=== PATIENT | male | born 1945 | race Hispanic/Latino ===

== ENCOUNTER 2020-07-11 05:16 | Inpatient (IN) | payer MEDICARE ==
[2020-07-06 08:56] LABS: BASOPHILS % 0.6 % (0.0-1.0); EOSINOPHILS # (AUTO) 0.1 (0.0-0.4); EOSINOPHILS % 1.6 % (0.0-6.0); HEMATOCRIT 39.3 % (38.2-49.6); HEMOGLOBIN 13.1 g/dL (14.0-18.0); LYMPHOCYTES # (AUTO) 1.5 (1.0-3.2); MEAN CORPUSCULAR HEMOGLOBIN 29.4 pg (28-32); MEAN CORPUSCULAR HGB CONC 33.3 g/dL (31-35); MEAN CORPUSCULAR VOLUME 88.1 fL (81-99); MONOCYTES # (AUTO) 0.7 (0.2-0.8); MONOCYTES % 9.7 % (4.4-11.3); NEUTROPHILS # (AUTO) 4.3 (2.1-6.9); NEUTROPHILS % 64.6 % (38.7-80.0); PLATELET COUNT 250 x10e3/uL (140-360); RED BLOOD COUNT 4.46 x10e6/uL (4.3-5.7); RED CELL DISTRIBUTION WIDTH 13.2 % (11.7-14.4)
[2020-07-06 09:23] LABS: INR 0.93; PARTIAL THROMBOPLASTIN TIME 26.3 seconds (23.8-35.5); PROTHROMBIN TIME 12.9 seconds (11.9-14.5)
[2020-07-06 09:32] LABS: ANION GAP 14.9 mmol/L (8-16); CALCIUM 8.8 mg/dL (8.4-10.2); CREATININE, SERUM 1.55 mg/dL (0.72-1.25); POTASSIUM 3.9 mmol/L (3.5-5.1)
[~2020-07-11] VITALS: Ht 165.1 cm; Wt 86.2 kg
[~2020-07-11 05:16] MED LIST: ASPIRIN81 MG PO; BASAGLAR K100 UNIT/1 SQ; DIOVAN160 MG PO; FINASTERIDE5 MG PO; FISH OIL 1,2001 EACH PO; FLOMAX0.4 MG PO; HUMALOG100 UNIT/3 SC; METOPROLOL SUCC50 MG PO; MULTIVITAMINS1 EAC7 PO; NOVOLIN N100 UNIT/1 SQ; RESVERATROL PL1 EACH PO; TOUJEO SOL300 UNIT/1 SC; TRADJENTA5 MG PO; VITAMIN B-121000 MCG PO; VITAMIN D310 MCG PO
[2020-07-11] MEDS ORDERED: GENTAMICIN 80MG/NS 100 ML 200 ML IV ONE (06:09)
[2020-07-11] MEDS ORDERED: CEFTRIAXONE SOD 1 GM/NS 50 ML 50 ML IV ONE (06:09)
[2020-07-11] MEDS ORDERED: SODIUM CHLORIDE 0.9% 1000ML 1,000 ML ONE (06:27)
[2020-07-11] MEDS ORDERED: INSULIN REGULAR, HUMAN 100 UNIT/1 ML 3ML VIAL ONE (06:30)
[2020-07-11] MEDS ORDERED: IOPAMIDOL 300MG/ML 50ML INFUS..BTL IV ONE (06:47)
[2020-07-11] MEDS ORDERED: B&O 60MG R/S 60 MG SUPP PR ONE (06:48)
[2020-07-11] MEDS ORDERED: GENTAMICIN 80MG/NS 100 ML 100 ML IV ONE (07:44)
[2020-07-11] MEDS ORDERED: PHENAZOPYRIDINE HCL 100 MG TAB PO PRN (08:45)
[2020-07-11] MEDS ORDERED: ONDANSETRON HCL INJ 2MG/ML 2ML 2 MG/ML VIAL IV PRN (08:45)
[2020-07-11] MEDS ORDERED: DIPHENHYDRAMINE HCL 25 MG CAP PO PRN (08:45)
[2020-07-11] MEDS ORDERED: B&O 60MG R/S 60 MG SUPP PR PRN (08:45)
[2020-07-11] MEDS ORDERED: MORPHINE SULFATE INJ 2 MG/ML SYR ONE (09:25)
[2020-07-11 09:49] VITALS: BP 147/73
[2020-07-11 10:53] LABS: BASOPHILS % 0.4 % (0.0-1.0); EOSINOPHILS % 0.4 % (0.0-6.0); HEMATOCRIT 37.9 % (38.2-49.6); LYMPHOCYTES # (AUTO) 0.7 (1.0-3.2); LYMPHOCYTES % 7.8 % (18.0-39.1); MEAN CORPUSCULAR HEMOGLOBIN 29.7 pg (28-32); MEAN CORPUSCULAR HGB CONC 34.3 g/dL (31-35); MEAN CORPUSCULAR VOLUME 86.7 fL (81-99); MONOCYTES # (AUTO) 0.5 (0.2-0.8); MONOCYTES % 5.8 % (4.4-11.3); NEUTROPHILS # (AUTO) 7.2 (2.1-6.9); NEUTROPHILS % 84.2 % (38.7-80.0); PLATELET COUNT 241 x10e3/uL (140-360); RED BLOOD COUNT 4.37 x10e6/uL (4.3-5.7)
[2020-07-11 11:14] LABS: ANION GAP 14.2 mmol/L (8-16); CALCIUM 8.6 mg/dL (8.4-10.2); CREATININE, SERUM 1.35 mg/dL (0.72-1.25); POTASSIUM 4.2 mmol/L (3.5-5.1)
[2020-07-11] MEDS: SODIUM CHLORIDE 0.9% 1000ML 1,000 ML IV SCH ×2 (11:20→16:34)
[2020-07-11] MEDS: DOCUSATE SODIUM 100 MG CAP PO SCH ×2 (11:20→16:34)
[2020-07-11 12:00] VITALS: BP 147/73
[2020-07-11] MEDS ORDERED: PROPOFOL IV EMULSION 10 MG/ML 20 ML VIAL ONE (12:55)
[2020-07-11] MEDS ORDERED: LIDOCAINE HCL 2% JELLY 5 ML TUBE ONE (12:55)
[2020-07-11] MEDS ORDERED: FENTANYL CITRATE/PF 100MCG/2 ML INJ ONE (12:55)
[2020-07-11] MEDS ORDERED: GENTAMICIN SULFATE 40 MG/ML 2 ML VIAL ONE (12:55)
[2020-07-11] MEDS ORDERED: SEVOFLURANE INHAL SOLN 250 ML PEN BTL ONE (12:55)
[2020-07-11] MEDS ORDERED: MIDAZOLAM HCL 2 MG/2 ML VIAL ONE (12:55)
[2020-07-11] MEDS ORDERED: LIDOCAINE HCL 2% LOCAL INJ 5 ML SDV VIAL INJ ONE (12:55)
[2020-07-11] MEDS ORDERED: ONDANSETRON HCL INJ 2MG/ML 2ML 2 MG/ML VIAL ONE (12:55)
[2020-07-11 16:00] VITALS: BP 143/73
[2020-07-11] MEDS: ACETAMINOPHEN/CODEINE 300MG - 30MG TAB PO PRN (16:35)
[2020-07-11] MEDS ORDERED: DEXTROSE 50% SYRINGE 50 ML IV PRN (16:45)
[2020-07-11] MEDS ORDERED: POLYETHYLENE GLYCOL 3350 17 GM PACK PO PRN (19:15)
[2020-07-11] MEDS ORDERED: TEMAZEPAM 7.5 MG CAP PO PRN (19:15)
[2020-07-11] MEDS ORDERED: HYDRALAZINE HCL 20 MG/ML VIAL IV PRN (19:15)
[2020-07-11 20:00] VITALS: BP 156/73
[2020-07-11] MEDS ORDERED: INSULIN GLARGINE 100 UNITS/ML VIAL SQ SCH (21:00)
[2020-07-11] MEDS: INSULIN REGULAR, HUMAN 100 UNIT/1 ML 3ML VIAL SQ SCH (21:37)
[2020-07-11] MEDS: INSULIN GLARGINE 100 UNITS/ML VIAL SQ SCH (21:43)
[2020-07-11 21:45] VITALS: BP 156/73
[2020-07-12] VITALS (8 sets, daily range): BP systolic 140–164; BP diastolic 69–79
[2020-07-12] MEDS: SODIUM CHLORIDE 0.9% 1000ML 1,000 ML IV SCH ×2 (05:08→15:00)
[2020-07-12 05:13] LABS: BASOPHILS % 0.5 % (0.0-1.0); EOSINOPHILS # (AUTO) 0.1 (0.0-0.4); EOSINOPHILS % 1.1 % (0.0-6.0); HEMATOCRIT 36.2 % (38.2-49.6); HEMOGLOBIN 12.4 g/dL (14.0-18.0); LYMPHOCYTES # (AUTO) 0.9 (1.0-3.2); LYMPHOCYTES % 10.5 % (18.0-39.1); MEAN CORPUSCULAR HEMOGLOBIN 29.9 pg (28-32); MEAN CORPUSCULAR HGB CONC 34.3 g/dL (31-35); MEAN CORPUSCULAR VOLUME 87.2 fL (81-99); MONOCYTES % 10.9 % (4.4-11.3); NEUTROPHILS # (AUTO) 6.7 (2.1-6.9); NEUTROPHILS % 76.3 % (38.7-80.0); PLATELET COUNT 240 x10e3/uL (140-360); RED BLOOD COUNT 4.15 x10e6/uL (4.3-5.7); RED CELL DISTRIBUTION WIDTH 13.4 % (11.7-14.4)
[2020-07-12 05:42] LABS: CALCIUM 8.4 mg/dL (8.4-10.2); CREATININE, SERUM 1.46 mg/dL (0.72-1.25)
[2020-07-12 06:02] LABS: CHOL/HDL RATIO 7.3 (3.9-4.7); MAGNESIUM 1.6 MG/DL (1.3-2.1); PHOSPHORUS 3.3 MG/DL (2.3-4.7)
[2020-07-12 06:23] LABS: THYROID STIMULATING HORMONE 1.982 uIU/mL (0.350-4.940)
[2020-07-12] MEDS: CEFTRIAXONE SOD 1 GM/NS 50 ML 50 ML IV SCH (06:42)
[2020-07-12] MEDS: DOCUSATE SODIUM 100 MG CAP PO SCH ×2 (08:22→15:00)
[2020-07-12] MEDS: FAMOTIDINE 20 MG TAB PO SCH ×2 (08:26→17:06)
[2020-07-12] MEDS: CYANOCOBALAMIN 1,000 MCG TAB PO SCH (08:26)
[2020-07-12] MEDS: TAMSULOSIN HCL 0.4 MG CAP PO SCH (08:26)
[2020-07-12] MEDS: MULTIVITAMINS/MINERALS TAB PO SCH (08:26)
[2020-07-12] MEDS: FINASTERIDE 5 MG TAB PO SCH (08:26)
[2020-07-12] MEDS: CHOLECALCIFEROL 400 UNIT TAB PO SCH (08:26)
[2020-07-12] MEDS: OMEGA 3 POLYUNSAT FATTY ACIDS 1000 MG SOFTGEL PO SCH (08:26)
[2020-07-12] MEDS: METOPROLOL SUCCINATE 50 MG TAB XL PO SCH ×2 (08:32→17:07)
[2020-07-12] MEDS: INSULIN REGULAR, HUMAN 100 UNIT/1 ML 3ML VIAL SQ SCH ×4 (08:32→21:49)
[2020-07-12] MEDS: ACETAMINOPHEN/CODEINE 300MG - 30MG TAB PO PRN (18:46)
[2020-07-12] MEDS ORDERED: ATORVASTATIN 40 MG TAB PO SCH (21:00)
[2020-07-12] MEDS: INSULIN GLARGINE 100 UNITS/ML VIAL SQ SCH (21:49)
[2020-07-13] VITALS: BP 152/78
[2020-07-13] MEDS: SODIUM CHLORIDE 0.9% 1000ML 1,000 ML IV SCH ×2 (00:43→11:08)
[2020-07-13 04:00] VITALS: BP 165/76
[2020-07-13 05:09] LABS: BASOPHILS % 0.5 % (0.0-1.0); EOSINOPHILS # (AUTO) 0.2 (0.0-0.4); EOSINOPHILS % 2.3 % (0.0-6.0); HEMATOCRIT 35.6 % (38.2-49.6); HEMOGLOBIN 11.9 g/dL (14.0-18.0); LYMPHOCYTES # (AUTO) 1.1 (1.0-3.2); MEAN CORPUSCULAR HEMOGLOBIN 29.5 pg (28-32); MEAN CORPUSCULAR HGB CONC 33.4 g/dL (31-35); MEAN CORPUSCULAR VOLUME 88.1 fL (81-99); MONOCYTES % 11.9 % (4.4-11.3); NEUTROPHILS # (AUTO) 6.3 (2.1-6.9); NEUTROPHILS % 71.4 % (38.7-80.0); PLATELET COUNT 225 x10e3/uL (140-360); RED BLOOD COUNT 4.04 x10e6/uL (4.3-5.7); RED CELL DISTRIBUTION WIDTH 13.3 % (11.7-14.4)
[2020-07-13 05:23] LABS: ANION GAP 12.1 mmol/L (8-16); CALCIUM 8.3 mg/dL (8.4-10.2); CREATININE, SERUM 1.36 mg/dL (0.72-1.25); POTASSIUM 4.1 mmol/L (3.5-5.1)
[2020-07-13] MEDS ORDERED: Atorvastatin PO (05:41)
[2020-07-13] MEDS: CEFTRIAXONE SOD 1 GM/NS 50 ML 50 ML IV SCH (06:32)
[2020-07-13 08:00] VITALS: BP 158/71
[2020-07-13] MEDS: INSULIN REGULAR, HUMAN 100 UNIT/1 ML 3ML VIAL SQ SCH ×3 (08:30→17:00)
[2020-07-13 08:39] VITALS: BP 158/71
[2020-07-13] MEDS: FAMOTIDINE 20 MG TAB PO SCH ×2 (08:54→16:40)
[2020-07-13] MEDS: TAMSULOSIN HCL 0.4 MG CAP PO SCH (08:55)
[2020-07-13] MEDS: MULTIVITAMINS/MINERALS TAB PO SCH (08:55)
[2020-07-13] MEDS: CHOLECALCIFEROL 400 UNIT TAB PO SCH (08:56)
[2020-07-13] MEDS: FINASTERIDE 5 MG TAB PO SCH (08:56)
[2020-07-13] MEDS: OMEGA 3 POLYUNSAT FATTY ACIDS 1000 MG SOFTGEL PO SCH (08:56)
[2020-07-13] MEDS: CYANOCOBALAMIN 1,000 MCG TAB PO SCH (08:56)
[2020-07-13] MEDS: METOPROLOL SUCCINATE 50 MG TAB XL PO SCH ×2 (08:57→16:40)
[2020-07-13] MEDS: ACETAMINOPHEN/CODEINE 300MG - 30MG TAB PO PRN (08:57)
[2020-07-13] MEDS: DOCUSATE SODIUM 100 MG CAP PO SCH ×2 (08:58→16:43)
[2020-07-13 11:50] VITALS: BP 159/69
[2020-07-13] MEDS ORDERED: ONDANSETRON HCL 4 MG ORAL DISINTEGRATING TAB PO PRN (12:45)
[2020-07-13 16:00] VITALS: BP 161/76
[2020-07-13] MEDS ORDERED: TYLENOL # 31 EA (17:23)
[2020-07-13] MEDS ORDERED: CEFUROXIME500 MG (17:24)
== END 2020-07-13 17:36 | disposition home or self-care (01) | DRG 713 ==
LOC: OR 05:16 → PACU V 08:38 → MED/SURG 09:50
PROVIDERS: ADMIT Internal Medicine; ATTEND Internal Medicine
PROC: BT141ZZ Fluoroscopy of Kidneys, Ureters and Bladder using Low Osmolar Contrast (ICD-10-PCS; 2020-07-11)
PROC: 0T788ZZ Dilation of Bilateral Ureters, Via Natural or Artificial Opening Endoscopic (ICD-10-PCS; 2020-07-11)
PROC: 0VT07ZZ Resection of Prostate, Via Natural or Artificial Opening (ICD-10-PCS; principal; 2020-07-11 07:00)
PROC: 0T7D8ZZ Dilation of Urethra, Via Natural or Artificial Opening Endoscopic (ICD-10-PCS; 2020-07-11 07:00)
DX: N40.1 Benign prostatic hyperplasia with lower urinary tract symptoms (principal); N39.0 Urinary tract infection, site not specified; N13.8 Other obstructive and reflux uropathy; N17.9 Acute kidney failure, unspecified; N35.816 Other urethral stricture, male, overlapping sites; E78.00 Pure hypercholesterolemia, unspecified; E78.1 Pure hyperglyceridemia; I12.9 Hypertensive chronic kidney disease with stage 1 through stage 4 chronic kidney disease, or unspecified chronic kidney disease; E11.22 Type 2 diabetes mellitus with diabetic chronic kidney disease; N18.30 Chronic kidney disease, stage 3 unspecified; Z20.828 Contact with and (suspected) exposure to other viral communicable diseases; I25.2 Old myocardial infarction; Z74.09 Other reduced mobility; E66.9 Obesity, unspecified; Z68.31 Body mass index [BMI] 31.0-31.9, adult; Z86.73 Personal history of transient ischemic attack (TIA), and cerebral infarction without residual deficits; Z87.891 Personal history of nicotine dependence; N32.89 Other specified disorders of bladder
CPT/HCPCS: 36415; 71046; 74420; 80048; 80061; 82948; 83036; 83735; 84100; 84443; 85025; 85610; 85730; 93005; 96361; 96372; C1758; J0696; J1580; J1815; J1817; J2001; J2250; J2270; J2405; J3010; J7030; U0002

== ENCOUNTER 2020-08-08 05:40 | Emergency (ER) | payer MEDICARE ==
[~2020-08-08] VITALS: Ht 317.5 cm; Wt 86.2 kg
[~2020-08-08 05:40] MED LIST changes: +Atorvastatin PO; +CEFUROXIME500 MG; +TYLENOL # 31 EA
[2020-08-08] MEDS ORDERED: OXYMETAZOLINE HCL 0.05% NAS 1 SPRAY BTL ONE (06:09)
== END 2020-08-08 06:01 | disposition home or self-care (01) ==
LOC: ER 05:57
DX: R09.81 Nasal congestion (principal); Z11.52 Encounter for screening for COVID-19
CPT/HCPCS: 99282; U0002

== ENCOUNTER → 2022-10-16 | Day surgery (SDC) | payer MEDICARE ==
[~2022-10-16] MED LIST changes: +DEXTROSE 5% 250ML 250 ML IV ONE; +FENTANYL CITRATE/PF 100MCG/2 ML INJ ONE; +LACTATED RINGER'S 1,000 ML ONE; +LOSARTAN POTASS25 MG PO; +MIDAZOLAM HCL 2 MG/2 ML VIAL ONE; +OMEGA 3 FISH O1 EACH PO; +OR PHACO EYE KIT ONE; +PRAVASTATIN SOD10 MG PO; +PREOP PHACO EYE KIT ONE; +[UNRECOGNIZED DRUG - OTHER] SQ
[2022-10-16 07:50] VITALS: BP 137/74
== END | disposition home or self-care (01) ==
LOC: OR 07:15
PROVIDERS: ATTEND Ophthalmology
DX: H25.12 Age-related nuclear cataract, left eye (principal); E11.22 Type 2 diabetes mellitus with diabetic chronic kidney disease; I12.9 Hypertensive chronic kidney disease with stage 1 through stage 4 chronic kidney disease, or unspecified chronic kidney disease; N18.4 Chronic kidney disease, stage 4 (severe); I25.2 Old myocardial infarction; E78.00 Pure hypercholesterolemia, unspecified; Z79.82 Long term (current) use of aspirin; Z79.4 Long term (current) use of insulin; Z79.899 Other long term (current) drug therapy; Z86.73 Personal history of transient ischemic attack (TIA), and cerebral infarction without residual deficits; Z68.32 Body mass index [BMI] 32.0-32.9, adult; Z86.16 Personal history of COVID-19; Z86.19 Personal history of other infectious and parasitic diseases; Z87.891 Personal history of nicotine dependence; Z82.49 Family history of ischemic heart disease and other diseases of the circulatory system; Z83.3 Family history of diabetes mellitus
CPT/HCPCS: 36415; 66984; 82948; J2250; J3010; J7070; J7121; V2788

== ENCOUNTER → 2022-11-13 | Day surgery (SDC) | payer MEDICARE ==
[2022-11-07 10:24] LABS: BASOPHILS % 0.6 % (0.0-1.0); EOSINOPHILS # (AUTO) 0.1 (0.0-0.4); EOSINOPHILS % 1.7 % (0.0-6.0); HEMATOCRIT 42.7 % (38.2-49.6); HEMOGLOBIN 13.9 g/dL (14.0-18.0); LYMPHOCYTES # (AUTO) 1.2 (1.0-3.2); LYMPHOCYTES % 19.1 % (18.0-39.1); MEAN CORPUSCULAR HEMOGLOBIN 29.8 pg (28-32); MEAN CORPUSCULAR HGB CONC 32.6 g/dL (31-35); MEAN CORPUSCULAR VOLUME 91.6 fL (81-99); MONOCYTES # (AUTO) 0.8 (0.2-0.8); MONOCYTES % 12.1 % (4.4-11.3); NEUTROPHILS # (AUTO) 4.2 (2.1-6.9); NEUTROPHILS % 64.9 % (38.7-80.0); PLATELET COUNT 225 x10e3/uL (140-360); RED BLOOD COUNT 4.66 x10e6/uL (4.3-5.7); RED CELL DISTRIBUTION WIDTH 13.3 % (11.7-14.4)
[2022-11-13 08:15] VITALS: BP 138/68
== END | disposition home or self-care (01) ==
LOC: OR 05:35
PROVIDERS: ATTEND Ophthalmology
DX: H25.11 Age-related nuclear cataract, right eye (principal); Z01.812 Encounter for preprocedural laboratory examination; Z79.82 Long term (current) use of aspirin; Z79.4 Long term (current) use of insulin; Z79.899 Other long term (current) drug therapy
CPT/HCPCS: 36415 ×2; 66984; 82948; 85025; J2250; J3010; J7070; J7121; V2788